=== PATIENT | male | born 1955 | race Caucasian/White ===

== ENCOUNTER 2017-07-27 19:31 | Emergency (ER) | payer OTHER ==
[2017-07-27 19:57] VITALS: RESP 18; TEMP 98
--- NOTE | 2017-07-27 20:03 | ED ---
General Adult HPI - General Chief complaint: Eye Problems Stated complaint: Headache, eye problems Time Seen by Provider: 07/27/17 20:02 Source: patient, family Mode of arrival: wheelchair Limitations: physical limitation - History of Present Illness Initial comments: Patient presents with R eye pain. 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 CT is sees injections regularly. States he had some pain immediately following procedure, however that subsided. States he woke up this morning with a pressure sensation in the right thigh, states worse with his head elevated, improved with putting his head between his legs. States he spoke with on-call Dr Lg Michaud, who prescribed atenolol drops 1 drop twice a day, as well as Acetazolamide twice a day. Patient states that improved his symptoms however pressure and pain in and around the eye continues. 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 States he wears a "bandaid contact lens" for 7 days at a time. Pt states he see's optho Dr Flakito Bellamy regularly, however it was a specialists who came to Dr. Bellamy's office who did his injection yesterday. Patient denies numbness, weakness, nausea, vomiting, neck pain, confusion, speech problems. - Related Data Home Medications Medication Instructions Recorded Confirmed Atorvastatin [Lipitor] 40 mg PO DAILY 07/27/17 07/27/17 Dorzolamide/Timolol/Pf [Cosopt Pf 1 applicator BOTH EYES BID 07/27/17 07/27/17 2%/5% Ophth Droperette] Gabapentin [Neurontin] 300 mg PO TID 07/27/17 07/27/17 Insulin Glargine,Hum.rec.anlog 70 unit SQ HS 07/27/17 07/27/17 [Lantus Solostar] Insulin Lispro [humaLOG Kwikpen] 10 unit SQ AC-TID 07/27/17 07/27/17 Pindolol [Visken] 5 mg PO DAILY 07/27/17 07/27/17 Quinapril HCl [Accupril] 20 mg PO DAILY 07/27/17 07/27/17 acetaZOLAMIDE [Diamox] 250 mg PO BID 07/27/17 07/27/17 metFORMIN HCL 1,000 mg PO BID 07/27/17 07/27/17 Previous Rx's Medication Instructions Recorded Brimonidine Tartrate [Alphagan P 1 drops RIGHT EYE Q12H 5 Days #10 07/27/17 0.2% Ophth Soln] ml HYDROcodone/APAP 7.5-325MG [[place] 1 tab PO Q4H PRN 2 Days #8 tab 07/27/17 7.5-325] Latanoprost Ophth [Xalatan 0.005%] 1 drops RIGHT EYE HS 5 Days #10 ml 07/27/17 acetaZOLAMIDE [Diamox] 250 mg PO Q6HR #20 tablet 07/27/17 Allergies Allergy/AdvReac Type Severity Reaction Status Date / Time No Known Allergies Allergy Verified 07/27/17 20:26 Review of Systems ROS Statement: Those systems with pertinent positive or pertinent negative responses have been documented in the HPI. ROS Other: All systems not noted in ROS Statement are negative. Constitutional: Denies: fever, chills Eyes: Reports: eye pain, eye discharge, other (red, watery eye). Denies: vision change (chronic blindness in R eye) ENT: Denies: ear pain, congestion Respiratory: Denies: cough, dyspnea Cardiovascular: Denies: chest pain, palpitations Endocrine: Denies: fatigue Gastrointestinal: Denies: abdominal pain, nausea, vomiting Genitourinary: Denies: frequency Musculoskeletal: Denies: back pain Skin: Denies: rash, change in color Neurological: Reports: headache. Denies: weakness, numbness, paresthesias, confusion, abnormal gait, vertigo Past Medical History Past Medical History: Diabetes Mellitus, Hypertension History of Any Multi-Drug Resistant Organisms: None Reported Past Surgical History: No Surgical Hx Reported Past Psychological History: No Psychological Hx Reported Smoking Status: Current every day smoker Past Alcohol Use History: None Reported Past Drug Use History: None Reported General Exam - General Exam Comments Initial Comments: Sitting up in bed holding her hand over right eye. Conversing normally. Calm, pleasant. Sitting slightly bent over with had lowered. Limitations: no limitations General appearance: alert, in no apparent distress Head exam: Present: atraumatic, normocephalic Eye exam: Present: EOMI, conjunctival injection (RIght eye only), other (No temporal tenderness bilaterally. Right pupil 5 mm, nonreactive. Left pupil reactive. Eye movements intact bilaterally. Watery discharge and conjunctival injection of right eye. IOP 51 R, 16 L. ). Absent: scleral icterus, nystagmus, periorbital swelling, periorbital tenderness ENT exam: Present: normal exam Neck exam: Present: normal inspection. Absent: tenderness, meningismus Respiratory exam: Present: normal lung sounds bilaterally. Absent: respiratory distress, wheezes, rales Cardiovascular Exam: Present: regular rate, normal rhythm GI/Abdominal exam: Present: soft. Absent: distended, tenderness, guarding, rebound Extremities exam: Present: normal inspection Back exam: Present: normal inspection Neurological exam: Present: alert, oriented X3, normal gait, other (Other than nonreactive pupil which patient states is chronic, no focal neuro deficits on exam.). Absent: motor sensory deficit Psychiatric exam: Present: normal affect, normal mood Skin exam: Present: warm, dry, intact, normal color. Absent: rash, cyanosis, erythema Course Vital Signs 07/27/17 19:52 Temperature 98.0 F Pulse Rate 74 Respiratory 18 Rate Blood Pressure 157/86 O2 Sat by Pulse 95 Oximetry Medical Decision Making - Medical Decision Making 20:[address] Josesito jimenez 21:03 Dr Josesito jimenez 2nd time 21:[address] Bellamy, states he knows patient a history very well. Updated with patient condition results including elevated intraocular pressure. States this is expected course for patient, he has chronic Kluck coma, as well as chronic corneal abrasion, states pressure may be slightly higher than actual due to bandage contact lens. States patient is to continue atenolol drops twice a day, increase acetazolamide to 4x/day, start Brimonidine drops BID , start Latanoprost drops 1x/day, request oral pain meds as well. States patient can be discharged home, patient can follow-up in his office at 10 AM tomorrow. States he'll be referring patient to differential specialist. Patient with updated with results and plan. They are agreeable with discharge home, agree to follow up with Dr. Bellamy at 10 AM tomorrow in his office without fail. Given prescriptions for all requested medications from Dr. Bellamy. All questions answered. Patient given [place] in the ER for pain. As well as gave himself a dose of his atenolol and acetazolamide that he has here. Disposition Clinical Impression: Chronic glaucoma Disposition: HOME SELF-CARE Condition: Good Instructions: Glaucoma (ED) Additional Instructions: Follow up at Dr. Bellamy's office at 10 AM tomorrow. Return to ER if new or worsening symptoms. Prescriptions: acetaZOLAMIDE [Diamox] 250 mg PO Q6HR #20 tablet Brimonidine Tartrate [Alphagan P 0.2% Ophth Soln] 1 drops RIGHT EYE Q12H 5 Days #10 ml HYDROcodone/APAP 7.5-325MG [[place] 7.5-325] 1 tab PO Q4H PRN 2 Days #8 tab PRN Reason: Severe Pain Latanoprost Ophth [Xalatan 0.005%] 1 drops RIGHT EYE HS 5 Days #10 ml Is patient prescribed a controlled substance at d/c from ED?: Yes When asked, does pt state using other controlled substances?: No If prescribed controlled substance>3 days was MAPS reviewed?: Prescribed <3 Days If opioid is for acute pain is fill amount 7 days or less?: Yes If Rx opioid, was Start Talking consent form obtained?: No Referrals: Naty Easley DO [Primary Care Provider] - 1-2 days
[2017-07-27] MEDS ORDERED: HYDROcodone/APAP 10-325MG 1 EACH TAB PO ONE (21:17)
[2017-07-27 21:34] VITALS: BP 143/79; PULSE 80
== END 2017-07-27 21:33 | disposition home or self-care (01) ==
LOC: EC 19:31
DX: H40.9 Unspecified glaucoma (principal); S00.211A Abrasion of right eyelid and periocular area, initial encounter; H54.61 Unqualified visual loss, right eye, normal vision left eye; I10 Essential (primary) hypertension; E11.9 Type 2 diabetes mellitus without complications; F17.200 Nicotine dependence, unspecified, uncomplicated; Z79.4 Long term (current) use of insulin; Z79.899 Other long term (current) drug therapy; X58.XXXA Exposure to other specified factors, initial encounter
CPT/HCPCS: 99283

== ENCOUNTER → 2019-03-17 | Outpatient (CLI) | payer OTHER ==
--- NOTE | 2019-03-17 10:41 | XR ---
EXAMINATION TYPE: XR KUB DATE OF EXAM: 03/17/2019 HISTORY: Pain Comparison: None. Single KUB is submitted for interpretation. Findings: Right renal calculi: None Visualized. Right ureteral calculi: 9 mm calculus overlying the region of the right renal pelvis. Left renal calculi: None Visualized. Left ureteral calculi: None Visualized. Pelvic calcifications: None Visualized. Bowel gas pattern is unremarkable. No free air. No mass effects. IMPRESSION: 1. 9 mm calculus overlying the region of the right renal pelvis.
== END ==
LOC: RADXRMAIN 10:14
PROVIDERS: ATTEND Urology
DX: N20.0 Calculus of kidney (principal)
CPT/HCPCS: 74018

== ENCOUNTER → 2019-05-02 | Outpatient (CLI) | payer OTHER ==
--- NOTE | 2019-05-02 12:27 | XR ---
EXAMINATION TYPE: XR KUB DATE OF EXAM: 05/02/2019 12:09 PM CLINICAL HISTORY: Nephrolithiasis TECHNIQUE: Single supine KUB image of the abdomen is obtained. COMPARISON: 03/17/2019. FINDINGS: Fecal debris overlies the right renal shadow creating partial obscuration. This does obscur e the area of the possible 9 mm calculus on the prior exam. Faint ovoid density just above the L4 monique tebral body on the right does not appear calcified and likely represents bowel contents. Atherosclero sis and seminal vesicle calcifications are seen. Degenerative changes of the spine and hips are simil ar to the prior. No dilated large or small bowel. Lung bases are well aerated. IMPRESSION: Retained fecal debris overlies the right renal shadow in the location of the previously s een 9 mm right renal calculus. There is a vague ovoid density over the right psoas just above the rig ht L4 transverse process that does not appear calcified and likely represents bowel contents. No disc rete renal calculi are seen.
== END | disposition home or self-care (01) ==
LOC: RADXRMAIN 11:54
PROVIDERS: ATTEND Urology
DX: N20.0 Calculus of kidney (principal); K59.09 Other constipation; Z98.890 Other specified postprocedural states
CPT/HCPCS: 74018

== ENCOUNTER → 2023-07-05 | Outpatient (CLI) | payer OTHER ==
--- NOTE | 2023-07-05 12:58 | CTL ---
EXAMINATION TYPE: CT Low Dose Lung DATE OF EXAM ORDERED: 07/05/2023 HISTORY:. Lung cancer screening CT DLP: [address]DI: 2.49 mGy Automated exposure control for dose reduction was used. SCREENING VISIT: First COMPARISON: None TECHNIQUE: Low dose computed tomography scan was performed through the chest at 1 mm thick sections a nd reconstructed images in multiple planes at 1 mm and [address] DIAGNOSTIC QUALITY: Satisfactory FINDINGS: There is no suspicious lung mass or nodule. There is a 4 cm calcified granuloma in the left upper lob e. There is no abnormal airspace/consolidative density or abnormal interstitial. There is no pleural effusion, pleural thickening or pneumothorax. The great vessels of the chest are normal there's no mediastinal, hilar or axillary adenopathy. Limited scanning through the upper abdomen reveals the 10 to 11 mm nonobstructing left renal calcific ation. No focal osseous lesions are seen. IMPRESSION: 1. Lung RADS category 2 benign findings. Continue routine screening at yearly intervals. 2. No acute cardiopulmonary disease. 3. Left renal calculus.
== END | disposition home or self-care (01) ==
LOC: RADCTMAIN 11:27
PROVIDERS: ATTEND Family Medicine
DX: Z12.2 Encounter for screening for malignant neoplasm of respiratory organs (principal); F17.210 Nicotine dependence, cigarettes, uncomplicated; N20.0 Calculus of kidney
CPT/HCPCS: 71271

== ENCOUNTER → 2024-01-29 | Outpatient (CLI) | payer MEDICARE, OTHER ==
[2024-01-29 13:21] LABS: African American GFR (CKD) >90 (>60 ml/min/1.73 sqM); Blood Urea Nitrogen 12 mg/dL (9-20); Non-African American GFR(CKD) >90 (>60 ml/min/1.73 sqM)
--- NOTE | 2024-01-29 14:26 | CT ---
EXAMINATION TYPE: CT chest w con CT DLP: 518.0 mGycm, Automated exposure control for dose reduction was used. DATE OF EXAM: 01/29/2024 2:13 PM COMPARISON: CT low-dose lung 07/05/2023 CLINICAL INDICATION:Male, 68 years old with history of R91.1; PHH, chronic cough x 2 months. TECHNIQUE: Multiple axial images were obtained through the chest following the administration of 100 cc of Isovue 300. . Coronal and sagittal reformats reviewed. FINDINGS: LUNGS/ PLEURA: No pleural effusion, pneumothorax, or focal consolidation. Minimal bilateral lower lob e subsegmental atelectasis. Stable left upper lobe 3 mm calcified granuloma (series 4, image 4). Sta ble anterior upper lobe 6 prominent groundglass opacity (series 4, image 17). No new or enlarging pul monary nodules. AIRWAY: Patent and unremarkable.. HEART: Size within normal limits.No pericardial effusion. Moderate to severe coronary artery calcific ations. MEDIASTINUM: No gross evidence of adenopathy. VASCULATURE: No aortic aneurysm. Incidental aberrant right subclavian artery with posterior esophage al course. Mild atherosclerotic calcification of the aorta and its branches. MUSCULOSKELETAL: No acute osseous abnormalities. Degenerative changes of the cervical spine. SOFT TISSUES/LYMPH NODES: Minimal bilateral gynecomastia. LOWER NECK: No significant findings. UPPER ABDOMEN: Surface nodularity of the liver. Punctate calcific granuloma within the right hepatic dome. Nonobstructive left renal 5 mm calculus. IMPRESSION: 1. No acute thoracic process. 2. Stable right upper lobe 6 mm groundglass pulmonary nodule. Follow-up CT chest in one year is recom mended. 3. Surface nodularity to liver suggesting cirrhosis. Correlate with liver function tests. 4. Nonobstructive left renal calculus. 5. Moderate to severe coronary artery calcifications. [facility], , 01/29/2024 2:24 PM
== END | disposition home or self-care (01) ==
LOC: RADCTMAIN 12:38
PROVIDERS: ATTEND Family Medicine
DX: R91.1 Solitary pulmonary nodule (principal); N20.0 Calculus of kidney; I25.10 Atherosclerotic heart disease of native coronary artery without angina pectoris; N62 Hypertrophy of breast; I70.0 Atherosclerosis of aorta; J98.11 Atelectasis
CPT/HCPCS: 82565; 84520; 71260; 36415; Q9967

== ENCOUNTER 2024-02-08 11:32 | Day surgery (SDC) | payer MEDICARE, OTHER ==
[2024-02-05 15:51] VITALS: BMI 30.1
[2024-02-08] MEDS: IV FLUID CONTINUATION 1,000 ML IV ONE ×2 (13:48→14:17)
[2024-02-08 13:51] VITALS: TEMP 97.5
[2024-02-08] MEDS: LACTATED RINGERS 1,000 ML IV SCH (14:03)
[2024-02-08 14:07] LABS: Glucose,Whole Blood 86 mg/dL (70-110)
[2024-02-08] MEDS ORDERED: PROPOFOL 10 MG/ML 20 ML VIAL IV ONE (14:18)
--- NOTE | 2024-02-08 14:39 | P.PCN ---
Date of Procedure: 02/08/24 Procedure(s) Performed: BRIEF HISTORY: Patient is a 68-year-old pleasant white male scheduled for an elective colonoscopy as a part of screening for for colon cancer. His mother was diagnosed with colon cancer at age 55. PROCEDURE PERFORMED: Colonoscopy. PREOPERATIVE DIAGNOSIS: Screening for colon cancer/ family history of colon cancer. IV sedation per Anesthesia. PROCEDURE: After informed consent was obtained, the patient, was brought into the endoscopy unit. IV sedation was administered by Anesthesia under continuous monitoring. Digital rectal examination was normal. Initially the Olympus CF-160 flexible video colonoscope was then inserted in the rectum, gradually advanced into the cecum without any difficulty. Careful examination was performed as the scope was gradually being withdrawn. Ileocecal valve and the appendiceal orifice were visualized and appeared normal. Prep was fair. Mucosa of the cecum, ascending colon, transverse colon, descending colon, sigmoid colon, and rectum appeared normal. Retroflexion was performed in the rectum and no lesions were seen. Scattered diverticulosis seen. The patient tolerated the procedure well. IMPRESSION: Normal-appearing colon from rectum to cecum colorectal neoplasia. Scattered sigmoid diverticulosis. RECOMMENDATIONS: Findings of this examination were discussed with the patient as well as his family.. He was advised to have repeat screening colonoscopy in 5 years because of the family history of colon cancer
[2024-02-08 14:45] VITALS: RESP 16
[2024-02-08 15:00] VITALS: BP 140/88; PULSE 65
== END 2024-02-08 15:30 | disposition home or self-care (01) ==
LOC: ORWHC2ENDO 11:32
PROVIDERS: ATTEND Internal Medicine Gastroenterology
DX: Z12.11 Encounter for screening for malignant neoplasm of colon (principal); K57.30 Diverticulosis of large intestine without perforation or abscess without bleeding; I10 Essential (primary) hypertension; E78.5 Hyperlipidemia, unspecified; F17.210 Nicotine dependence, cigarettes, uncomplicated; J44.9 Chronic obstructive pulmonary disease, unspecified; E07.9 Disorder of thyroid, unspecified; N20.0 Calculus of kidney; E11.40 Type 2 diabetes mellitus with diabetic neuropathy, unspecified; Z80.0 Family history of malignant neoplasm of digestive organs; Z79.890 Hormone replacement therapy; Z79.4 Long term (current) use of insulin; Z79.02 Long term (current) use of antithrombotics/antiplatelets; Z79.51 Long term (current) use of inhaled steroids; Z79.899 Other long term (current) drug therapy
CPT/HCPCS: J2704; G0105

== ENCOUNTER → 2024-02-14 | Outpatient (CLI) | payer MEDICARE ==
[~2024-02-14] MED LIST: REGADENOSON 0.4 MG/5 ML SYRINGE IV ONE
--- NOTE | 2024-02-14 10:33 | CA ---
Lexiscan Nuclear Stress Test Report Name: Jin Fraser Exam Date: 02/14/2024 09:35 Exam Location: [place] Stress Ht (in): 72 Wt (lb): 222 BSA: 2.23 Ordering Phys: Christianne Tabares DO Referring Phys: Oumou Cheney PAC Technologist: Jean-Pierre Lopez Age: 68 Gender: M : 1955 Procedure CPT: Indications: I25.10 ATHSCL HEART DISEASE OF [place] CORONARY ART ICD-10 Codes: Patient History: DIFFICULTY IN BREATHING, HTN, DIABETIC, HYPERCHOLESTEROLEMIA, FAMILY HX OF HEART DISEASE, CURRENT SMOKER, PRIOR LA, PRIOR CATH, COPD Medications: Meds past 24 hrs: Pretest Chest Pain: STRESS TEST Lexiscan Protocol Exercise Duration (min:sec): 01:[address] Depressions (mm): Angina Score: Blakely Score: Resting HR (bpm): 59 Peak HR (bpm): 76 Resting BP (mmHg): 125 / 68 Peak BP (mmHg): 133 / 77 MPHR: 150 Target HR: 128 % MPHR: 51 METS: 1.0 Total Dose: Peak Dose: Atropine: Double Product: 89813 BP Response: Stress Termination: INFUSION COMPLETE Stress Symptoms: NO SYMPTOMS Stress Summary: ECG ANALYSIS Resting ECG: Normal sinus rhythm with right bundle branch block Stress ECG: Patient was given intravenous Lexiscan as a protocol did not have chest pain or diagnostic ST segment depression CONCLUSIONS Inconclusive EKG part of the stress test due to baseline EKG abnormalities Cardiolite portion of the stress test will be reported separately Dr. Francesco Asencio MD (Electronically Signed) Final Date: 14 February 2024 10:32
--- NOTE | 2024-02-14 12:11 | NM ---
EXAMINATION TYPE: NM stress lexiscan cardiolite DATE OF EXAM: 02/14/2024 COMPARISON: NONE CLINICAL INDICATION: Male, 68 years old with history of I25.10 ATHSCL HEART DISEASE OF [place] CORONAR Y ART; TECHNIQUE: After the intravenous administration of 9.7 mCi Tc 99m Sestamibi - Cardiolite resting SPE CT images acquired 45 minutes post injection. The patient received 0.4mg Lexiscan, 25.9 mCi Tc 99m Sestamibi - Stress images obtained [address] injection FINDINGS: Review of stress and rest SPECT images demonstrates fixed defect inferior wall. Reversible perfusion abnormality is seen involving the lateral wall. Gated analysis shows normal wall motion with an estim ated left ventricular ejection fraction of 53% %. IMPRESSION: Area of reversible ischemia involving the lateral wall. [facility], , 02/14/2024 12:09 PM
== END | disposition home or self-care (01) ==
LOC: RADNMMAIN 08:00
PROVIDERS: ATTEND Family Medicine
DX: I25.10 Atherosclerotic heart disease of native coronary artery without angina pectoris (principal); I99.8 Other disorder of circulatory system
CPT/HCPCS: 93017; 78452; A9500

== ENCOUNTER → 2024-05-15 | Outpatient (CLI) | payer MEDICARE ==
[2024-05-15 14:45] LABS: HCT 44.2 % (39.6-50.0); HGB 14.1 g/dL (13.0-17.0); RBC 4.81 X 10*6/uL (4.40-5.60); WBC 7.36 X 10*3/uL (4.50-10.00)
[2024-05-15 14:46] LABS: MCH 29.3 pg (27.0-32.0); MCHC 31.9 g/dL (32.0-37.0); MCV 91.9 FL (80.0-97.0); Mean Platelet Volume 10.2 FL (9.5-12.2); NRBC Per 100 WBC 0 X 10*3/uL (0.00-0.01); Platelet Count 207 X 10*3/uL (140-440); RDW 13.8 % (11.5-14.5)
[2024-05-15 15:07] LABS: ALT 33 U/L (10-49); AST 32 U/L (14-35); BUN/Creat Ratio 13.57 Ratio (12.00-20.00); Blood Urea Nitrogen 9.5 mg/dL (9.0-27.0); Calcium 9.4 mg/dL (8.7-10.3); Carbon Dioxide 29.7 mmol/L (21.6-31.8); Chloride 105 mmol/L (96-109); Chol/HDL Ratio 2.71 Ratio; Glucose 60 mg/dL (70-110); LDL Cholesterol,Calculated 51.8 mg/dL (0.0-131.0); Potassium 4.3 mmol/L (3.5-5.5); Sodium 144 mmol/L (135-145)
== END | disposition home or self-care (01) ==
LOC: LABWHC1 08:56
PROVIDERS: ATTEND Internal Medicine Cardiovascular Disease
DX: E78.2 Mixed hyperlipidemia (principal); R94.39 Abnormal result of other cardiovascular function study
CPT/HCPCS: 36415; 80048; 80061; 84450; 84460; 85027

== ENCOUNTER → 2024-05-30 | Day surgery (SDC) | payer MEDICARE ==
[~2024-05-30] MED LIST changes: +ALPRAZolam 0.25 MG TAB PO PRN; +ALPRAZolam 0.5 MG TAB PO PRN; +NITROGLYCERIN SL TABS 0.4 MG TAB SUBLINGUAL PRN; -REGADENOSON 0.4 MG/5 ML SYRINGE IV ONE; +RX INFO: IV CONTRAST WAS GIVEN 1 EACH MISC MISCELLANE PRN; +SODIUM CHLORIDE 0.9% 1,000 ML IV SCH
[2024-05-30] MEDS: IV FLUID CONTINUATION 1,000 ML IV ONE (08:30)
[2024-05-30] MEDS: SODIUM CHLORIDE 0.9% 1,000 ML in EMPTY BAG 1 BAG IV SCH (08:55)
[2024-05-30 09:02] LABS: Glucose,Whole Blood 93 mg/dL (70-110)
[2024-05-30] MEDS: ASPIRIN 325 MG TAB PO STA (09:06)
[2024-05-30 09:19] VITALS: RESP 16; TEMP 97.9
[2024-05-30] MEDS: LIDOCAINE 1% INJ 10MG/ML (20 ML MDV) SQ ONE (09:41)
[2024-05-30] MEDS: fentaNYL (PF) 50 MCG/ML 2 ML AMP IVP ONE (09:41)
[2024-05-30] MEDS: MIDAZOLAM 2 MG/2 ML VIAL IVP ONE (09:41)
[2024-05-30] MEDS: VERAPAMIL SYRINGE (5 MG/10 ML) INTRAARTER ONE (09:43)
[2024-05-30] MEDS: HEPARIN SODIUM 1,000 UN/ML (10ML VL) IV ONE (09:46)
[2024-05-30] MEDS: IOPAMIDOL-370 100ML BTL INJ ONE (09:56)
[2024-05-30] MEDS: HEPARIN SODIUM,PORCINE 10,000 UNIT in SODIUM CHLORIDE 0.9% 1,000 ML IRRIGATION PRN (09:57)
[2024-05-30] MEDS: HEPARIN SODIUM,PORCINE (1 ML) 2,500 UNIT in SODIUM CHLORIDE 0.9% 250 ML IRRIGATION PRN (09:58)
--- NOTE | 2024-05-30 10:37 | CC ---
CARDIAC CATHETERIZATION REPORT INDICATION: Shortness of breath with abnormal stress test showing ischemia involving lateral wall. PROCEDURE NOTE: After obtaining informed consent, left heart catheterization and coronary angiogram were performed via the right radial artery using standard Elvia catheters. The patient tolerated the procedure well without any obvious immediate complications. The patient received moderate conscious sedation. Total sedation time was 15 minutes. Right radial artery access was obtained using Seldinger technique, 6-Divehi sheath was placed. Catheters and wires were floated into the ascending aorta under fluoroscopic guidance. The patient received verapamil and heparin per protocol and a TR band was used for hemostasis. FINDINGS: 1. HEMODYNAMICS: Left ventricular end-diastolic pressure is 10 to 12 mm. There is no significant gradient across the aortic valve. 2. LEFT VENTRICULOGRAM: Left ventriculogram is not performed. 3. ANGIOGRAPHIC DATA: a.Right coronary artery: Right coronary artery is heavily calcified and is chronically occluded in its proximal portion. There are extensive collaterals from the distal LAD to the right coronary artery. b.Left main coronary artery appears calcified, but is free of significant stenosis. Divides into left anterior descending coronary artery and circumflex coronary artery. c.LAD shows a mild atherosclerotic plaque in its proximal portion. Circumflex coronary artery appears totally occluded in its proximal part. CONCLUSION: Severe two-vessel coronary artery disease with chronic total occlusion of the circumflex coronary artery and right coronary artery without significant disease in the LAD. 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 I discussed these issues with the patient and I will discuss this with the . MMISSA / AGNESN: [id number] /
[2024-05-30 18:41] VITALS: BP 165/87; PULSE 70
== END ==
LOC: CATHCVL 08:27
PROVIDERS: ATTEND Internal Medicine Cardiovascular Disease
DX: I25.10 Atherosclerotic heart disease of native coronary artery without angina pectoris (principal); I25.82 Chronic total occlusion of coronary artery; I10 Essential (primary) hypertension; E11.9 Type 2 diabetes mellitus without complications; E78.2 Mixed hyperlipidemia; F17.210 Nicotine dependence, cigarettes, uncomplicated; Z79.02 Long term (current) use of antithrombotics/antiplatelets; Z79.84 Long term (current) use of oral hypoglycemic drugs; Z79.890 Hormone replacement therapy; Z79.899 Other long term (current) drug therapy
CPT/HCPCS: 93458; 99152; C1894; J2250; J1644 ×3; J2003; J3010; Q9967